=== PATIENT | male | born 1975 | race Caucasian/White ===

== ENCOUNTER 2018-12-17 01:40 | Emergency (ER) | payer MEDICAID ==
[~2018-12-17] VITALS: Ht 165.1 cm; Wt 80.0 kg
[2018-12-17] MEDS ORDERED: LIDOCAINE HCL 1%/EPI 1:200,000 30 ML VIAL MC ONE (02:45)
[2018-12-17] MEDS ORDERED: IBUPROFEN 600MG TABLET PO ONE (03:15)
[2018-12-17] MEDS ORDERED: BACITRACIN ZINC OINT UDPKT TOP ONE (03:15)
[2018-12-17] MEDS ORDERED: TETANUS, DIPHTHERIA, PERTUSSIS VAC/PF 0.5ML (>7YR OLD) IM ONE (03:15)
[2018-12-17 03:34] VITALS: BP 140/87
== END 2018-12-17 04:00 | disposition home or self-care (01) ==
LOC: ER 01:40
DX: S01.01XA Laceration without foreign body of scalp, initial encounter (principal); E11.9 Type 2 diabetes mellitus without complications; W20.8XXA Other cause of strike by thrown, projected or falling object, initial encounter; Y93.89 Activity, other specified; Y92.89 Other specified places as the place of occurrence of the external cause; Y99.8 Other external cause status
CPT/HCPCS: 12004; 90471; 90715; 99283

== ENCOUNTER 2018-12-27 16:47 | Emergency (ER) | payer MEDICAID ==
[~2018-12-27] VITALS: Ht 162.6 cm; Wt 89.0 kg
[2018-12-27 18:29] VITALS: BP 123/84
== END 2018-12-27 18:31 | disposition home or self-care (01) ==
LOC: ER 16:47
DX: S01.01XD Laceration without foreign body of scalp, subsequent encounter (principal); W19.XXXD Unspecified fall, subsequent encounter; E11.9 Type 2 diabetes mellitus without complications
CPT/HCPCS: 99281